=== PATIENT | female | born 1995 | race Caucasian/White ===

== ENCOUNTER 2018-06-20 06:38 | Emergency (ER) | payer OTHER ==
[~2018-06-20] VITALS: Ht 162.5 cm; Wt 61.7 kg
[~2018-06-20 06:38] MED LIST: AMOXICILLIN500 MG PO; BACTRIM DS 8001 TA1 PO; BIRTH CONTROL1 EAC1 PO; PREDNISONE20 MG PO
== END 2018-06-20 07:20 | disposition home or self-care (01) ==
LOC: ED 06:38
DX: S90.31XA Contusion of right foot, initial encounter (principal); W55.19XA Other contact with horse, initial encounter; Y93.89 Activity, other specified; Y92.89 Other specified places as the place of occurrence of the external cause; Y99.8 Other external cause status